=== PATIENT | male | born 1965 | race Caucasian/White ===

== ENCOUNTER 2019-10-07 03:48 | Emergency (ER) | payer SELFPAY ==
[2019-10-07] MEDS ORDERED: MORPHINE 4 MG/ML SYR ONE (04:15)
[2019-10-07] MEDS ORDERED: ONDANSETRON 4 MG (ODT) TAB ONE (04:45)
[2019-10-07] MEDS ORDERED: HYDROMORPHONE HCL 1 MG/ML INJ ONE (05:10)
--- NOTE | 2019-10-07 06:27 | EDPHYS ---
Physician Documentation [facility] Name: Domingo James Age: 54 yrs Sex: Male : 1965 Arrival Date: 10/07/2019 Time: 03:50 Bed 19 Private MD: ED Physician Sukhdev Ellis HPI: 10/07 05:03 This 54 yrs old Male presents to ER via Ambulatory with complaints of Fall Injury, Hip ma2 Pain, Back Pain. 05:03 Details of fall: The patient fell from seated position. Associated injuries: The ma2 patient sustained left leg. Severity of symptoms: At their worst the symptoms were moderate, in the emergency department the symptoms are unchanged. The patient has not experienced similar symptoms in the past. Historical: - Allergies: 04:07 PENICILLINS; ea 04:07 Codeine; ea 04:07 NSAIDS; ea - Immunization history:: Adult Immunizations up to date. - Coronavirus screen:: The patient has NOT traveled to [place] in the past 14 days. - Social history:: Patient/guardian denies using alcohol, street drugs, The patient lives with spouse, Smoking status: Patient denies any tobacco usage or history of. - Family history:: not pertinent. - Ebola Screening: : No symptoms or risks identified at this time. ROS: 05:03 Constitutional: Negative for fever, chills, and weight loss. ma2 05:03 All other systems are negative. Exam: 05:03 Constitutional: This is a well developed, well nourished patient who is awake, alert, ma2 and in no acute distress. Neck: Trachea midline, no thyromegaly or masses palpated, and no cervical lymphadenopathy. Supple, full range of motion without nuchal rigidity, or vertebral point tenderness. No Meningismus. Chest/axilla: Normal chest wall appearance and motion. Nontender with no deformity. No lesions are appreciated. Cardiovascular: Regular rate and rhythm with a normal S1 and S2. No gallops, murmurs, or rubs. Normal PMI, no JVD. No pulse deficits. Respiratory: Lungs have equal breath sounds bilaterally, clear to auscultation and percussion. No rales, rhonchi or wheezes noted. No increased work of breathing, no retractions or nasal flaring. Abdomen/GI: Soft, non-tender, with normal bowel sounds. No distension or tympany. No guarding or rebound. No evidence of tenderness throughout. Back: left lower paraspinal muscle ttp, No spinal tenderness. No costovertebral tenderness. Full range of motion. MS/ Extremity: Pulses equal, no cyanosis. Neurovascular intact. Full, normal range of motion. Neuro: Awake and alert, GCS 15, oriented to person, place, time, and situation. Cranial nerves II-XII grossly intact. Motor strength 5/5 in all extremities. Sensory grossly intact. Cerebellar exam normal. Normal gait. Vital Signs: 04:00 BP 170 / 103; Pulse 88; Resp 18; Temp 98; Pulse Ox 99% ; Weight 106.59 kg; Height 5 ft. ea 8 in. (172.72 cm); 06:30 BP 172 / 100; Pulse 78; Resp 18; Temp 98; Pulse Ox 98% ; ea 04:00 Body Mass Index 35.73 (106.59 kg, 172.72 cm) ea Lucien Coma Score: 04:00 Eye Response: spontaneous(4). Verbal Response: oriented(5). Motor Response: obeys ea commands(6). Total: 15. Trauma Score (Adult): 04:00 Eye Response: spontaneous(1); Verbal Response: oriented(1); Motor Response: obeys ea commands(2); Systolic BP: > 89 mm Hg(4); Respiratory Rate: 10 to 29 per min(4); Jeff Score: 15; Trauma Score: 12 MDM: 03:57 Patient medically screened. ma2 05:03 Differential diagnosis: abrasion, contusion, fracture, laceration. Data reviewed: vital ma2 signs, nurses notes. Counseling: I had a detailed discussion with the patient and/or guardian regarding: the historical points, exam findings, and any diagnostic results supporting the discharge/admit diagnosis, the presence of at least one elevated blood pressure reading (>120/80) during this emergency department visit, the need for outpatient follow up. Response to treatment: the patient's symptoms have resolved after treatment. 10/07 04:09 Order name: XRAY Hip LEFT 2 view ea 10/07 04:09 Order name: Lumbar Spine (3 Views) XRAY ea Administered Medications: 04:15 Drug: morphine 4 mg {Note: RASS 0.} Route: IM; Site: left gluteus; ea 06:30 Follow up: Response: No adverse reaction; Pain is decreased; RASS: Alert and Calm (0) ea 04:43 Drug: Zofran 4 mg Route: PO; ea 06:30 Follow up: Response: No adverse reaction ea 05:09 Drug: Dilaudid 1 mg Route: IM; Site: right gluteus; ea 06:50 Follow up: Response: No adverse reaction; Pain is decreased; RASS: Alert and Calm (0) ea Disposition: 10/07/19 06:27 Discharged to Home. Impression: Low back pain. - Condition is Stable. - Discharge Instructions: Back Pain, Adult. - Prescriptions for Valium 10 mg Oral Tablet - take 1 tablet by ORAL route every 8 hours As needed; 20 tablet. Cyclobenzaprine 10 mg Oral Tablet - take 1 tablet by ORAL route every 8 hours As needed; 30 tablet. Zanaflex 4 mg Oral Tablet - take 1 tablet by ORAL route every 8 hours As needed; 20 tablet. Tramadol 50 mg Oral Tablet - take 1 tablet by ORAL route every 8 hours as needed; 12 tablet. - Medication Reconciliation Form, Thank You Letter, Antibiotic Education, Prescription Opioid Use form. - Follow up: Private Physician; When: Tomorrow; Reason: Continuance of care. Signatures: Dispatcher [employer] EDLakisha Davis RN RN ea Alzahri, Mohammad, MD MD ma2 Corrections: (The following items were deleted from the chart) 06:50 06:27 10/07/2019 06:27 Discharged to Home. Impression: Low back pain. Condition is ea Stable. Discharge Instructions: Back Pain, Adult. Prescriptions for Valium 10 mg Oral Tablet - take 1 tablet by ORAL route every 8 hours As needed; 20 tablet, Cyclobenzaprine 10 mg Oral Tablet - take 1 tablet by ORAL route every 8 hours As needed; 30 tablet. and Forms are Medication Reconciliation Form, Thank You Letter, Antibiotic Education, Prescription Opioid Use. Follow up: Private Physician; When: Tomorrow; Reason: Continuance of care. ma2
--- NOTE | 2019-10-07 06:27 | ER ---
Nurse's Notes [facility] Name: Domingo James Age: 54 yrs Sex: Male : 1965 Arrival Date: 10/07/2019 Time: 03:50 Bed 19 Private MD: Diagnosis: Low back pain Presentation: 10/07 04:04 Presenting complaint: Patient states: Pt reports he fell on his left side from a deck, ea reports he did not have LOC, landed on left side. Report pain on left hip. Transition of care: patient was not received from another setting of care. Onset of symptoms was October 07, 2019. Risk Assessment: Do you want to hurt yourself or someone else? Patient reports no desire to harm self or others. Initial Sepsis Screen: Does the patient meet any 2 criteria? No. Patient's initial sepsis screen is negative. Does the patient have a suspected source of infection? No. Patient's initial sepsis screen is negative. Care prior to arrival: None. 04:04 Method Of Arrival: Ambulatory ea 04:04 Acuity: RANCHO 3 ea Historical: - Allergies: 04:07 PENICILLINS; ea 04:07 Codeine; ea 04:07 NSAIDS; ea - Immunization history:: Adult Immunizations up to date. - Coronavirus screen:: The patient has NOT traveled to [place] in the past 14 days. - Social history:: Patient/guardian denies using alcohol, street drugs, The patient lives with spouse, Smoking status: Patient denies any tobacco usage or history of. - Family history:: not pertinent. - Ebola Screening: : No symptoms or risks identified at this time. Screenin:03 Abuse screen: Denies threats or abuse. Nutritional screening: No deficits noted. ea Tuberculosis screening: No symptoms or risk factors identified. Fall Risk Fall in past 12 months (25 points). Assessment: 04:02 General: Appears uncomfortable, Behavior is calm, cooperative, appropriate for age. ea Pain: Complains of pain in left hip Pain radiates to low back area. 04:03 Neuro: Level of Consciousness is awake, alert, obeys commands, Oriented to person, ea place, time, situation. Cardiovascular: Patient's skin is warm and dry. Respiratory: Airway is patent Respiratory effort is even, unlabored, Respiratory pattern is regular, symmetrical. Derm: Skin is pink, warm \T\ dry. 05:32 Reassessment: Patient and/or family updated on plan of care and expected duration. Pain ea level reassessed. Patient is alert, oriented x 3, equal unlabored respirations, skin warm/dry/pink. 06:46 Reassessment: Patient and/or family updated on plan of care and expected duration. Pain ea level reassessed. Patient is alert, oriented x 3, equal unlabored respirations, skin warm/dry/pink. Discharge instruction given to patient, verbalized the understanding of instruction. Pt left ED with family. Patient states symptoms have improved. Vital Signs: 04:00 BP 170 / 103; Pulse 88; Resp 18; Temp 98; Pulse Ox 99% ; Weight 106.59 kg; Height 5 ft. ea 8 in. (172.72 cm); 06:30 BP 172 / 100; Pulse 78; Resp 18; Temp 98; Pulse Ox 98% ; ea 04:00 Body Mass Index 35.73 (106.59 kg, 172.72 cm) ea Spalding Coma Score: 04:00 Eye Response: spontaneous(4). Verbal Response: oriented(5). Motor Response: obeys ea commands(6). Total: 15. Trauma Score (Adult): 04:00 Eye Response: spontaneous(1); Verbal Response: oriented(1); Motor Response: obeys ea commands(2); Systolic BP: > 89 mm Hg(4); Respiratory Rate: 10 to 29 per min(4); Spalding Score: 15; Trauma Score: 12 ED Course: 03:50 Patient arrived in ED. ag3 03:57 Sukhdev Ellis MD is Attending Physician. ma2 04:00 Lakisha Valdes RN is Primary Nurse. ea 04:04 Arm band placed on right wrist. Patient placed in an exam room, on a stretcher, on ea pulse oximetry. 04:04 Patient has correct armband on for positive identification. Bed in low position. Call ea light in reach. Side rails up X2. 04:05 Triage completed. ea 06:11 XRAY Hip LEFT 2 view In Process Unspecified. EDMS 06:11 Lumbar Spine (3 Views) XRAY In Process Unspecified. EDMS 06:47 No provider procedures requiring assistance completed. Patient did not have IV access ea during this emergency room visit. Administered Medications: 04:15 Drug: morphine 4 mg {Note: RASS 0.} Route: IM; Site: left gluteus; ea 06:30 Follow up: Response: No adverse reaction; Pain is decreased; RASS: Alert and Calm (0) ea 04:43 Drug: Zofran 4 mg Route: PO; ea 06:30 Follow up: Response: No adverse reaction ea 05:09 Drug: Dilaudid 1 mg Route: IM; Site: right gluteus; ea 06:50 Follow up: Response: No adverse reaction; Pain is decreased; RASS: Alert and Calm (0) ea Outcome: 06:27 Discharge ordered by MD. oneal 06:48 Discharged to home via wheelchair. ea 06:48 Condition: stable 06:48 Discharge instructions given to patient, Instructed on discharge instructions, follow up and referral plans. medication usage, Demonstrated understanding of instructions, follow-up care, medications, Prescriptions given X 3. 06:50 Patient left the ED. ea Signatures: Dispatcher [employer] Lakisha Sanchez RN RN Sukhdev Rubin MD MD ma2 Gomez, Alice 3
[2019-10-07 06:56] VITALS: TEMP 98
[2019-10-07 06:57] VITALS: BP 172/100; O2SAT 98
--- NOTE | 2019-10-07 06:59 | RAD REPORT ---
EXAM DESCRIPTION: RAD - Hip Left 2 View - 10/07/2019 6:11 am CLINICAL HISTORY: PAIN Fall, pain COMPARISON: No comparisons FINDINGS: No acute fracture or dislocation evident.
--- NOTE | 2019-10-07 06:59 | RAD REPORT ---
EXAM DESCRIPTION: RAD - Lumbar Spine 3 Views - 10/07/2019 6:11 am CLINICAL HISTORY: PAIN Radiculopathy COMPARISON: No comparisons FINDINGS: Vertebral body heights appear maintained. No compression fracture noted. Multilevel disc t hinning with posterior osteophyte formation noted, most prominent at L3-4 and L4-5. No spondylolysis or spondylolisthesis. IMPRESSION: Mild lower lumbar spondylosis.
== END 2019-10-07 06:50 | disposition home or self-care (01) ==
LOC: ER 03:48
DX: M54.5 Low back pain (principal); Z88.0 Allergy status to penicillin; Z88.5 Allergy status to narcotic agent; Z88.6 Allergy status to analgesic agent
CPT/HCPCS: 72100; 96372; 99284; J1170